=== PATIENT | male | born 1990 ===

== ENCOUNTER 2023-09-15 21:24 | Emergency (ER) | payer SELFPAY ==
[2023-09-15] MEDS ORDERED: Sodium Chloride 0.9% 10 ML Syringe FLUSH PRN (21:53)
[2023-09-15] MEDS: Lactated Ringers 1,000 ML IV ONE (22:06)
[2023-09-15 22:13] LABS: BASOPHILS ABSOLUTE AUTO 0.02 K/uL (0.00-0.20); BASOPHILS PERCENT AUTO 0.5 % (0.0-2.0); EOSINOPHILS ABSOLUTE AUTO 0.13 K/uL (0.00-0.50); EOSINOPHILS PERCENT AUTO 3.4 % (0.0-5.0); HEMATOCRIT 41.4 % (39.0-49.0); HEMOGLOBIN 15.1 g/dL (13.1-16.8); LYMPHOCYTES ABSOLUTE AUTO 1.52 K/uL (0.50-3.50); LYMPHOCYTES PERCENT AUTO 40.2 % (10.0-50.0); MEAN CORPUSCULAR HEMOGLOBIN 32.8 pg (28.2-33.3); MEAN CORPUSCULAR HGB CONC 36.5 g/dL (31.7-36.0); MONOCYTES ABSOLUTE AUTO 0.52 K/uL (0.00-1.00); MONOCYTES PERCENT AUTO 13.8 % (2.0-14.0); NEUTROPHILS ABSOLUTE AUTO 1.59 K/uL (1.40-7.00); NEUTROPHILS PERCENT AUTO 42.1 % (45.0-80.0); PLATELET COUNT,PLT 191 K/uL (150-350); RED CELL DISTRIBUTION WIDTH 10.9 % (11.2-14.1); WHITE BLOOD CELL COUNT,WBC 3.8 K/uL (4.0-10.2)
[2023-09-15 22:33] LABS: ALANINE AMINOTRANSFERASE,ALT 22 U/L (12-78); ALBUMIN 3.9 g/dL (3.4-5.0); ALKALINE PHOSPHATASE 74 IU/L (46-116); ANION GAP 10.9 meq/L (7-15); ASPARTATE AMNIOTRANSFERASE,AST 47 U/L (15-37); BILIRUBIN TOTAL 1.2 mg/dL (0.2-1.0); BLOOD UREA NITROGEN,BUN 10 mg/dL (7-18); CALCIUM 9.4 mg/dL (8.5-10.1); CARBON DIOXIDE,CO2 27.1 mmol/L (21.0-32.0); CHLORIDE,CL 101 mmol/L (98-107); CREATININE 1.04 mg/dL (0.51-1.17); GLUCOSE RANDOM 146 mg/dL (70-99); POTASSIUM,K 3.7 mmol/L (3.5-5.1); PROTEIN TOTAL,TP 7.9 g/dL (6.4-8.2); SODIUM,NA 139 mmol/L (136-145)
[2023-09-15 22:35] LABS: ESTIMATED GFR 97 mL/min (>=60)
[2023-09-15 23:17] LABS: PROTHROMBIN TIME 10.3 SEC (9.0-11.1)
== END 2023-09-15 23:05 | disposition home or self-care (01) ==
LOC: LL.ED 21:24
DX: K59.00 Constipation, unspecified (principal); Z91.048 Other nonmedicinal substance allergy status
CPT/HCPCS: 36415; 80053; 80307; 85025; 85610; 96360; 99284; J7120; 99283